=== PATIENT | female | born 1990 | race Caucasian/White ===

== ENCOUNTER 2025-04-08 03:52 | Emergency (ER) | payer OTHER, SELFPAY ==
--- NOTE | ~2025-04-08 | CT_ITS ---
Noncontrast CT scan of the left hip CLINICAL HISTORY: Injury TECHNIQUE: Axial noncontrast imaging of the left hip was performed. Sagittal and coronal reformatted images were constructed. Dose reduction technique was used on this scan by utilizing automated exposu re control and iterative reconstruction technique. The dose-length product (DLP) was 336.34 mGy-cm. Findings: No fracture or dislocation seen. Left hip joint and left SI joint are unremarkable. No dege nerative change or joint effusion seen. Visualized musculature about the left hip is unremarkable. There is a 3.1 x 2.6 cm amorphous somewhat masslike lesion in the subcutaneous soft tissues at the anterior aspect of the left inguinal region (axial image 84), which could reflect hematoma. IMPRESSION: No fracture or dislocation. No osseous or articular abnormality. 3.1 x 2.6 cm suspected hematoma in the anterior subcutaneous soft tissues at the left inguinal region . Reviewed, dictated and finalized at location . IMPRESSION: No fracture or dislocation. No osseous or articular abnormality. 3.1 x 2.6 cm suspected hematoma in the anterior subcutaneous soft tissues at th e left inguinal region.
[2025-04-08 04:12] VITALS: BP 95/65; PULSE 67; RESP 14; TEMP 36.3; O2SAT 100
[2025-04-08 04:19] VITALS: BP 95/49; PULSE 72; RESP 17; TEMP 36.6; O2SAT 99
--- OUTSIDE RECORDS SUMMARY | 2025-04-08 05:16 | XMS_ITS | Referral Summary ---
Author Organization [facility] Virtual Care Address [address] [place] [phone] Phone Care Team Providers Care Railroad Dispatcher Name Role Phone Unknown, Notinfile Primary Care Provider Unavail able Encounters Date Type Department Care Team Description 04/05/2025 Documentation [facility] Social Work [address] [place] [phone] Merlene Thompson 04/04/2025 1:23 PM CDT - 04/04/2025 3:58 PM CDT Emergency [address] [address] Fall, initial encounter (Primary Dx); Contusion of left foot, initial encounter; Abscess Discharge Disposition: Discharge to home or self care from Last 3 Months Allergies No known active allergies Medications acetaminophen (TYLENOL) 500 mg tablet Take 1 tablet (500 mg total) by mouth every 6 (six) hours as needed for pain 30 tablet 04/04/2025 Active cephalexin (KEFLEX) 500 mg capsule Take 1 capsule (500 mg total) by mouth 4 (four) times a day for 10 days 40 capsule 04/04/2025 Active naproxen (NAPROSYN) 500 mg tablet Take 1 tablet (500 mg total) by mouth 2 (two) times a day with meals 30 tablet 04/04/2025 Active Social History Tobacco Use Types Packs/Day Years Used Date Smoking Tobacco: Never Assessed Personal Safety Answer Date Recorded Have you ever been in or are you currently in a harmful physical or emotional relationship or is someone making you feel afraid or unsafe? Denies 04/04/2025 Comments Unknown Sex and Gender Information Value Date Recorded Sex Assigned at Not on file Legal Sex Female 7:07 PM CDT Gender Identity Not on file Sexual Orientation Not on file Last Filed Vital Signs Vital Sign Reading Time Taken Comments Blood Pressure 104/85 04/04/2025 3:56 PM CDT Pulse 68 04/04/2025 3:56 PM CDT Temperature 37.2 C (99 F) 04/04/2025 12:49 PM CDT Respiratory Rate 18 04/04/2025 3:56 PM CDT Oxygen Saturation 100% 04/04/2025 3:56 PM CDT Inhaled Oxygen Concentration - - Weight - - Height - - Body Mass Index - - Plan of Treatment Not on file Procedures Procedure Name Priority Date/Time Associated Diagnosis Comments XR FOOT LEFT 3 OR MORE VIEWS ED 04/04/2025 1:24 PM CDT from Last 3 Months Results * XR Foot Left 3 or More Views (04/04/2025 1:24 PM CDT) Anatomical Region Laterality Modality Lower Extremities, Foot Left Computed Radiography 04/04/2025 1:28 PM CDT Narrative 04/04/2025 1:31 PM CDT EXAM DESCRIPTION: XR FOOT LEFT 3 OR MORE VIEWS REASON FOR STUDY: pain Pt states she is staying at a motel and fell down last 3 stairs. C/o pain, redness, and swelling to left 2nd digit with difficulty moving it. Also c/o left groin pain radiating to left thigh. TECHNIQUE: 3 radiographic view(s) of the left foot . COMPARISON: None available. FINDINGS: BONES/JOINTS: Postsurgical changes of internal fixation are seen at the talus and distal tibia. No acute fracture or dislocation. Mild osteoarthritic changes of the dorsal talonavicular joint, and talocalcaneal joints. SOFT TISSUES: Within normal limits. IMPRESSION: No acute osseous abnormality. THIS IS AN ELECTRONICALLY VERIFIED FINAL REPORT 04/04/2025 1:31 PM - Electronically signed by Dorian Juarez M.D. T: Report ID: [id number] Reading Location: [id number] Procedure Note Dorian Juarez, - 04/04/2025 EXAM DESCRIPTION: XR FOOT LEFT 3 OR MORE VIEWS REASON FOR STUDY: pain Pt states she is staying at a motel and fell down last 3 stairs. C/o pain, redness, and swelling to left 2nd digit with difficulty moving it. Alsoc/o left groin pain radiating to left thigh. TECHNIQUE: 3 radiographic view(s) of the left foot . COMPARISON: None available. FINDINGS: BONES/JOINTS: Postsurgical changes of internal fixation are seenat the talus and distal tibia. No acute fracture or dislocation. Mild osteoarthritic changes of the dorsal talonavicular joint, andtalocalcaneal joints. SOFT TISSUES: Within normal limits. IMPRESSION: No acute osseous abnormality. THIS IS AN ELECTRONICALLY VERIFIED FINAL REPORT 04/04/2025 1:31 PM - Electronically signed by Dorian Juraez M.D. T: Report ID: [id number] Reading Location: [place] [id number] Oanh [facility] IMG XR PROCEDURES Final Resul t from Last 3 Months Insurance [facility] Care Teams Railroad Dispatcher Relationship Specialty Start Date End Date Unknown, Notinfile PCP - General 04/04/25
--- OUTSIDE RECORDS SUMMARY | 2025-04-08 05:17 | XMS_ITS | Clinical Summary ---
Author Organization [facility] Virtual Care Address [address] [place] [phone] Phone Care Team Providers Care It Web Development Consultant Name Role Phone Unknown, Notinfile Primary Care Provider Unavail able Allergies No known active allergies Medications acetaminophen [...] day with meals 30 tablet 04/04/2025 Active Encounters Date Type Department Care Team Description 04/05/2025 Documentation [facility] Social Work [address] [place] [phone] Merlene Thompson 04/04/2025 1:23 PM CDT - 04/04/2025 3:58 PM CDT Emergency [address] [address] Fall, initial encounter (Primary Dx); Contusion of left foot, initial encounter; Abscess Discharge Disposition: Discharge to home or self care from Last 3 Months Social History Tobacco Use Types Packs/Day Years [...] Mass Index - - Plan of Treatment Health Maintenance Due Date Last Done Comments Cervical Cancer Screening 1988 Depression Screening 1988 Hepatitis C Screening 1988 DTaP/Tdap/Td Vaccine (1 - Tdap) 1999 Varicella Vaccines (1 of 2 - 13+ 2-dose series) 2001 Hepatitis B Screening 2006 Regular Well Visit/Exam 18-64 2006 Influenza Vaccine (#1) 2025 HPV Vaccines Aged Out No longer eligi ble based on patient's age to complete this topic Pneumococcal vaccine <65 Aged Out No longer eligible based on patient's age to complete this topic Procedures Procedure Name Priority Date/Time Associated Diagnosis [...] by Dorian Juarez M.D. T: Report ID: [id number] Reading Location: [id number] Procedure Note Dorian Juarezory, DO - 04/04/2025 EXAM DESCRIPTION: XR FOOT LEFT [...] by Dorian Juarez M.D. T: Report ID: [id number] Reading Location: [id number] Oanh [facility]STA IMG XR PROCEDURES Final Resul t from Last 3 Months Insurance [facility] Care Teams It Web Development Consultant Relationship Specialty Start Date End Date Unknown, Notinfile PCP - General 04/04/25
--- OUTSIDE RECORDS SUMMARY | 2025-04-08 05:17 | XMS_ITS | Patient Health Record ---
Author Organization [facility] Address [address] [place] [address] Care Team Providers Care Dry Color Mixer Name Role Phone Sherry Wahl Primary Care Provider Reason For Referral No Information Medications Medication SIG (Take, Route, Frequency, Duration) Notes Start Date End Date Status BuSpar Active Latuda 40 MG 1 tablet with food O rally Once a day; Duration: 30 day(s) 01/13/2016 Active Fluoxetine Active Plan Of Treatment No Information Insurance Providers Payer Name Payer Address Payer Phone Subscriber Number Group Number Insured Name Patient Relationship to Insured Coverage Start Date Coverage End Date MEDICAID [address] [place] [phone] [id number] Clari Cooper Self - patient is the insured Medical (General) History Medical History History ICD Code Chemical Dependency Bipolar Disorder Personality Disorder Anemia Surgical History Surgery Date(Month/Year) ankle fractures
--- NOTE | 2025-04-08 05:44 | ED.LOWEXIN ---
HPI - Extremity Injury (Lower) General Chief Complaint: Extremity Injury, Lower Stated Complaint: groin pain Time Seen by Provider: 04/08/25 04:51 History of Present Illness HPI Narrative: 35-year-old female without any chronic medical conditions and does not take any chronic medications. She presents to the emergency department for concerns of left thigh and groin pain. She knows that she had started developing some bruising and swelling this area after falling down 3 steps while tripping on carpet. This occurred several days ago. She went to another hospital where she was evaluated and did not receive any kind of imaging and was told that this could just be an abscess and was given antibiotics and discharged. Patient did not fill this prescription and wants 2nd opinion. She does have some bruising and swelling to the inner left thigh that she states she struck during the fall. She is ambulatory and has not taken any pain medications or any medications at all prior to arrival. No fever, chills, abdominal pain, back pain, nausea, vomiting. Was otherwise in her normal state of health. Ambulatory in triage. Related Data Allergies Allergy/AdvReac Type Severity Reaction Status Date / Time No Known Allergies Allergy Verified 04/08/25 04:17 Review of Systems Review of Systems: As reviewed above in HPI Exam Narrative: GENERAL: [Well-appearing, well-nourished, and in no acute distress.] HEAD: [Normocephalic, atraumatic.] EYES: [PERRLA and EOMI.] ENT: Nares clear, no rhinorrhea or epistaxis. Mucous membranes moist. NECK: Supple. CHEST: [Clear to auscultation. No respiratory distress.] HEART: [Regular rate and rhythm]. No murmur heard. [Normal peripheral pulses.] ABDOMEN: [Soft, nondistended], [nontender], [No rigidity or guarding] EXTREMITIES: Left inner thigh has an area of swelling and tenderness to palpation, minor overlying bruising, no fluctuant masses or overlying cellulitis or skin changes concerning for infection. Full range of motion of the bilateral lower extremities and ambulatory. Distal pulses intact. Femoral pulses intact. SKIN: Warm, dry, no rash. NEURO: [No focal deficits]. Alert and oriented [x3.] PSYCH: [Normal mood and affect.] Course Vital Signs Vital signs: Vital Signs Temperature 36.3 C L 04/08/25 04:12 Pulse Rate 67 07/17/25 04:12 Respiratory Rate 14 04/08/25 04:12 Blood Pressure 95/65 L 04/08/25 04:12 Pulse Oximetry 100 04/08/25 04:12 Oxygen Delivery Room Air 04/08/25 04:12 Temperature 36.6 C 04/08/25 04:19 Pulse Rate 72 04/08/25 04:19 Respiratory Rate 17 04/08/25 04:19 Blood Pressure 95/49 L 04/08/25 04:19 Pulse Oximetry 99 04/08/25 04:19 Oxygen Delivery Room Air 04/08/25 04:19 MDM - Extremity Injury (Lower) MDM Narrative Medical decision making narrative: 35-year-old female without any chronic medical conditions and does not take any chronic medications. She presents to the emergency department for concerns of left thigh and groin pain. She knows that she had started developing some bruising and swelling this area after falling down 3 steps while tripping on carpet. This occurred several days ago. She went to another hospital where she was evaluated and did not receive any kind of imaging and was told that this could just be an abscess and was given antibiotics and discharged. Patient did not fill this prescription and wants 2nd opinion. She does have some bruising and swelling to the inner left thigh that she states she struck during the fall. She is ambulatory and has not taken any pain medications or any medications at all prior to arrival. No fever, chills, abdominal pain, back pain, nausea, vomiting. Was otherwise in her normal state of health. Ambulatory in triage. Left inner thigh has an area of swelling and tenderness to palpation, minor overlying bruising, no fluctuant masses or overlying cellulitis or skin changes concerning for infection. Full range of motion of the bilateral lower extremities and ambulatory. Distal pulses intact. Femoral pulses intact. Given patient's history of a fall several days ago and the resulting hematoma and bruising since then this is likely a traumatic hematoma, possibility of intramuscular bleeding or intramuscular hematoma, low suspicion infectious process as she is afebrile with no symptoms of infection on the exam. CT scans of the hip and femur were ordered for further evaluation delineation she is provided Toradol for analgesia. CT scan shows no fractures dislocations, no osseous or articular abnormalities. There is a 3 x 2.6 cm hematoma in the subcutaneous tissues in left inguinal region consistent with her exam findings and injury pattern. Patient had good pain relief with Toradol and we will syndrome with this. We discussed return precautions and follow-up instructions and she was amenable. Patient is safe and stable for discharge at this time. Medical Records Attestation: I reviewed the patient's medical records. Imaging Data Attestation: I personally reviewed and interpreted this imaging study as follows: My impression: Impressions Hip CT 04/08/25 06:05 IMPRESSION: No fracture or dislocation. No osseous or articular abnormality. 3.1 x 2.6 cm suspected hematoma in the anterior subcutaneous soft tissues at the left inguinal region. Discharge Plan Discharge Clinical Impression: Traumatic hematoma of left thigh Patient Disposition: Home Condition: Stable Instructions: Antibiotic Form, Contusion in Adults (ED), Hematoma (ED) Additional Instructions: Your CT scan shows a 3.1 cm x 2.6 cm hematoma in the soft tissue/muscular region in the left inguinal region consistent with your exam findings. No signs of active infection and would not recommend you take antibiotics for this. Will prescribe you high strength anti-inflammatory to control the pain and swelling for the next several days. Return with any new or worsening/emergent concerns at any time. With regular doctor. Patient Language: Albanian Prescriptions: New ketorolac 10 mg tablet 10 mg PO Q8H PRN (Reason: pain) 5 Days Qty: 20 0RF Rx Instructions: maximum total duration of 5 days from all oral, intranasal, or parenteral formulations Follow-up/Referrals: PHYSICIAN,PHARMACY SCHEDULER [Primary Care Provider] - Time of Disposition: 06:31
[2025-04-08] MEDS: KETOROLAC 10 MG TABLET PO (06:23)
[2025-04-08 06:53] VITALS: BP 105/79; PULSE 79; RESP 16; O2SAT 97
== END 2025-04-08 06:54 | disposition home or self-care (01) ==
PROVIDERS: Emergency Provider Student in an Organized Health Care Education/Training Program
DX: S70.12XA Contusion of left thigh, initial encounter (principal); W10.9XXA Fall (on) (from) unspecified stairs and steps, initial encounter
CPT/HCPCS: 73700; 99284; A9270

== ENCOUNTER 2025-04-11 15:08 | Emergency (ER) | payer OTHER, SELFPAY ==
--- NOTE | ~2025-04-11 | CT_ITS ---
CT OF left hip with contrast EXAMINATION: CT hip LT w con DATE: 04/11/2025 17:54 INDICATION: TECHNIQUE: Computed tomography (CT) of the left hip was performed with 100 mL Omnipaque 350 intraveno us contrast. Automated exposure control and iterative reconstruction technique were employed. The dos e-length product was 307.82 mGy-cm. COMPARISON: CT left hip without contrast 04/08/2025 FINDINGS: 2.9 x 3.3 x 3.2 cm heterogeneous fluid collection in the left groin with irregular wall thickening, w all enhancement, and possible internal septae. There is significant surrounding fat stranding. Multip le borderline enlarged adjacent lymph nodes. Strand-like connection to the adjacent femoral vein. Emp ty urinary bladder. Normal uterus. Normal left ovary with a corpus luteal cyst. Trace free pelvic flu id, within physiologic range. Normal regional bones. IMPRESSION: Possible 3.3 cm left inguinal abscess, with adjacent borderline lymphadenopathy. Pseudoaneurysm is no t excluded, recommend left groin ultrasound to evaluate for internal flow. Reviewed, dictated and finalized at location K. IMPRESSION: Possible 3.3 cm left inguinal abscess, with adjacent borderline lymphadenopathy . Pseudoaneurysm is not excluded, recommend left groin ultrasound to evaluate f or internal flow.
--- OUTSIDE RECORDS SUMMARY | 2025-04-11 15:11 | XMS_ITS | Patient Health Record ---
Author Organization [facility] Address [address] [place] [address] Care Team Providers Care Director Of Women'S Services Name Role Phone Sherry Wahl Primary Care Provider [phone] Reason For Referral No Information Medications Medication [...] Date MEDICAID [address] [place] [address] [id number] Clari Cooper Self - patient is the insured Medical (General) History Medical History History ICD Code Chemical Dependency Bipolar Disorder Personality Disorder Anemia Surgical History Surgery Date(Month/Year) ankle fractures
--- OUTSIDE RECORDS SUMMARY | 2025-04-11 15:11 | XMS_ITS | Clinical Summary ---
Author Organization [facility] Virtual Care Address [address] [place] [phone] Phone Care Team Providers Care Weed Eradicator Name Role Phone Unknown, Notinfile Primary Care [...] Type Department Care Team Description 04/05/2025 Documentation [facility] Social Work [address] [place] [phone] Merlene Thompson 04/04/2025 1:23 PM CDT - 04/04/2025 3:58 PM CDT Emergency [address] [address] Fall, initial encounter (Primary Dx); Contusion of [...] by Dorian Juarez M.D. T: Report ID: [id number] Reading Location: [id number] Procedure Note Dorian Juarezory, DO - 04/04/2025 [...] by Dorian Juarez M.D. T: Report ID: [id number] Reading Location: [id number] Oanh [facility] IMG XR PROCEDURES Final Resul t from Last 3 Months Insurance [facility] Care Teams Weed Eradicator Relationship Specialty Start Date End Date Unknown, Notinfile PCP - General 04/04/25
--- OUTSIDE RECORDS SUMMARY | 2025-04-11 15:11 | XMS_ITS | Referral Summary ---
Author Organization [facility] Virtual Care Address [address] [place] [phone] Phone Care Team Providers Care Iv Rn Name Role Phone Unknown, Notinfile Primary Care Provider Unavail able Encounters Date Type Department Care Team Description 04/05/2025 Documentation [facility] Social Work [address] [place] [phone] Merlene Thompson 04/04/2025 1:23 PM CDT - 04/04/2025 3:58 PM CDT Emergency [address] [address] Fall, initial encounter (Primary Dx); Contusion of [...] by Dorian Juarez M.D. T: Report ID: [id number] Reading Location: [id number] Procedure Note Dorian Juarez, - 04/04/2025 EXAM [...] by Dorian Juarez M.D. T: Report ID: [id number] Reading Location: [place] [id number] Oanh [facility] IMG XR PROCEDURES Final Resul t from Last 3 Months Insurance [facility] Care Teams Iv Rn Relationship Specialty Start Date End Date Unknown, Notinfile PCP - General 04/04/25
[2025-04-11 15:15] VITALS: BP 121/69; PULSE 89; RESP 16; TEMP 36.3; O2SAT 100
--- NOTE | 2025-04-11 15:35 | PC.NURSE ---
Pt states she was seen here [address] done and informed to come back if symptoms get worse. Pt states pain and swelling are now worse
--- OUTSIDE RECORDS SUMMARY | 2025-04-11 15:56 | XMS_ITS | Clinical Summary ---
Author Organization [facility] Virtual Care Address [address] [place] [phone] Phone Care Team Providers Care Research Aide Name Role Phone Unknown, Notinfile Primary Care [...] Care Team Description 04/05/2025 Documentation [facility] Social Work [address] [place] [phone] Merlene Thomposn 04/04/2025 1:23 PM CDT - 04/04/2025 3:58 PM CDT Emergency [address] [address] Fall, initial encounter (Primary Dx); Contusion of [...] by Dorian Juarez M.D. T: Report ID: [id number] Reading Location: [id number] Procedure Note Dorian Juarezory, DO - 04/04/2025 [...] by Dorian Juarez M.D. T: Report ID: [id number] Reading Location: [id number] Oanh [facility]STA IMG XR PROCEDURES Final Resul t from Last 3 Months Insurance [facility] Care Teams Research Aide Relationship Specialty Start Date End Date Unknown, Notinfile PCP - General 04/04/25
--- OUTSIDE RECORDS SUMMARY | 2025-04-11 15:56 | XMS_ITS | Referral Summary ---
Author Organization [facility] Virtual Care Address [address] [place] [phone] Phone Care Team Providers Care Retail Shift Leader Name Role Phone Unknown, Notinfile Primary Care Provider Unavail able Encounters Date Type Department Care Team Description 04/05/2025 Documentation [facility] Social Work [address] [place] [phone] Merlene Thompson 04/04/2025 1:23 PM CDT - 04/04/2025 3:58 PM CDT Emergency [address] [address] Fall, initial encounter (Primary Dx); Contusion of [...] by Dorian Juarez M.D. T: Report ID: [id number] Reading Location: [id number] Procedure Note Dorian Juarez, - 04/04/2025 EXAM [...] by Dorian Juarez M.D. T: Report ID: [id number] Reading Location: [place] [address] Oanh A[facility]STA IMG XR PROCEDURES Final Resul t from Last 3 Months Insurance [facility] Care Teams Retail Shift Leader Relationship Specialty Start Date End Date Unknown, Notinfile PCP - General 04/04/25
--- NOTE | 2025-04-11 16:29 | ED.GENADULT ---
HPI - General Adult General Chief complaint: Extremity Injury, Lower Stated complaint: hematoma in left groin Time Seen by Provider: 04/11/25 15:30 History of Present Illness HPI narrative: 35-year-old female presents to the emergency department for evaluation for worsening left groin pain. Patient states she initially stubbed her toe approximately 1 week ago in the began developing some left groin pain. Patient was evaluated on 04/08 and found to have a hematoma. Patient was discharged home with medications for pain control but states the hematoma and pain has worsened. Patient denies any additional falls or injuries but states that she does have worsening swelling at the left groin. Related Data Allergies Allergy/AdvReac Type Severity Reaction Status Date / Time No Known Allergies Allergy Verified 04/08/25 04:17 Review of Systems Review of Systems: All systems reviewed & are unremarkable except as noted in HPI and below Exam Narrative: APPEARANCE: Well appearing, no pain, no distress, well-nourished. HEAD: normocephalic, atraumatic. EYES: PERRLA/EOMI, conjunctivae clear. NOSE: Normal no drainage EARS:TMS clear with good light reflex. THROAT: Pharynx clear, no exudate. NECK: Supple. No adenopathy, no masses. RESPIRATORY: Airway patent, respirations nonlabored. Clear to auscultation bilaterally, no rales, rhonchi, wheezing. CARDIOVASCULAR: Regular rate and rhythm without murmurs rubs or gallops. ABDOMINAL: Soft, nontender, nondistended, normal bowel sounds MUSCULOSKELETAL: Moves all extremities. Strength/ROM intact, No edema, No calf tenderness. NEURO: Alert. Cranial nerves II through XII intact. Good gait. Good coordination SKIN: Erythema and tenderness at left groin Course Vital Signs Vital signs: Vital Signs Temperature 97.4 F L 04/11/25 15:15 Pulse Rate 89 04/11/25 15:15 Respiratory Rate 16 04/11/25 15:15 Blood Pressure 121/69 04/11/25 15:15 Pulse Oximetry 100 04/11/25 15:15 Oxygen Delivery Room Air 04/11/25 15:15 Temperature 97.4 F L 04/11/25 15:15 Pulse Rate 89 04/11/25 15:15 Respiratory Rate 16 04/11/25 15:15 Blood Pressure 121/69 04/11/25 15:15 Pulse Oximetry 100 04/11/25 15:15 Oxygen Delivery Room Air 04/11/25 15:15 Medical Decision Making MDM Narrative Medical decision making narrative: 35-year-old female presents emergency department for evaluation for swelling in the left groin. Patient is afebrile but does have a leukocytosis of 10.5. Patient's hemoglobin is 7.8 with no previous baseline. Patient's INR is 1.1. Patient has no acute abnormalities on her CMP urine preg was negative. CT scan showed possible abscess but additional ultrasound was recommended. Patient was adamant about having to leave the emergency department. Patient did sign out AMA. Patient was started on clindamycin prior to leaving AMA. Patient was encouraged to return to the emergency department. Vital Signs Vital Signs: Vital Signs Temperature 97.4 F L 04/11/25 15:15 Pulse Rate 89 04/11/25 15:15 Respiratory Rate 16 04/11/25 15:15 Blood Pressure 121/69 04/11/25 15:15 Pulse Oximetry 100 04/11/25 15:15 Oxygen Delivery Room Air 04/11/25 15:15 Temperature 97.4 F L 04/11/25 15:15 Pulse Rate 89 04/11/25 15:15 Respiratory Rate 16 04/11/25 15:15 Blood Pressure 121/69 04/11/25 15:15 Pulse Oximetry 100 04/11/25 15:15 Oxygen Delivery Room Air 04/11/25 15:15 Lab Data 04/11/25 16:51 04/11/25 16:51 Labs: Lab Results 04/11/25 04/11/25 Range/Units 16:51 17:31 WBC 10.5 H (4.5-10.0) K/mm3 RBC 3.65 L (4.2-5.4) M/mm3 Hgb 7.8 L (12.0-15.0) g/dL Hct 26.2 L (37.0-47.0) % MCV 71.8 L (80-100) fl MCH 21.4 L (26-34) pg MCHC 29.8 L (32-36) g/dl RDW 17.3 H (11.5-14.5) % Plt Count 241 (150-375) k/mm3 MPV 9.6 (7.4-10.4) fl Immature Gran % (Auto) 0.4 (0-0.5) % Neut % (Auto) 70.3 (45.5-73.1) % Lymph % (Auto) 18.3 (18.3-44.2) % [place] % (Auto) 9.7 H (2.6-8.5) % Eos % (Auto) 0.9 (0-4.4) % Baso % (Auto) 0.4 (0.2-1.2) % Lymph # (Auto) 1.92 (0.9-3.2) K/mm3 [place] # (Auto) 1.0 H (0.1-0.6) K/mm3 Eos # (Auto) 0.1 (0-0.3) K/mm3 Baso # (Auto) 0.0 (0.0-0.1) K/mm3 Abs Immat Gran (auto) 0.04 H (0.00-0.031) K/mm3 Absolute Neuts (auto) 7.4 H (1.3-6.7) K/mm3 Absolute Nucleated RBC 0.000 (0.0-0.012) K/mm3 Nucleated RBC % 0.0 (0.0-0.2) % PT 14.3 (11.1-14.7) Seconds INR 1.1 APTT 38.1 H (22.3-36.8) Seconds Sodium 137 (137-145) mmol/L Potassium 3.6 (3.4-5.0) mmol/L Chloride 106 (98-107) mmol/L Carbon Dioxide 23 (22-30) mmol/L Anion Gap 8 (4-12) mmol/L BUN 15 (7-17) mg/dL Creatinine 0.57 L (0.7-1.0) mg/dL Estim Creat Clear Calc 99 ml/min Estimated GFR > 60 (59 - ) Glucose 98 (65-110) mg/dL Calcium 8.9 (8.4-10.2) mg/dL Total Bilirubin 0.4 (0.2-1.3) mg/dL AST 18 (14-36) U/L ALT 11 (6-35) U/L Alkaline Phosphatase 67 (38-126) U/L Total Protein 7.2 (6.3-8.2) g/dL Albumin 3.7 (3.5-5.1) g/dL POC Urine HCG, Qual Negative (Negative) Discharge Plan Discharge Clinical Impression: Abscess, Groin pain Patient Disposition: Left Against Medical Advice Condition: Stable Additional Instructions: You left against medical advice. Antibiotic as directed for possible abscess. You need to return to the emergency department for further evaluation including an ultrasound. Patient Language: Polish Prescriptions: New clindamycin HCl [Cleocin HCl] 300 mg capsule 300 mg PO Q6H 7 Days Qty: 28 0RF No Action ketorolac 10 mg tablet 10 mg PO Q8H PRN (Reason: pain) 5 Days Qty: 20 0RF Rx Instructions: maximum total duration of 5 days from all oral, intranasal, or parenteral formulations Follow-up/Referrals: PHYSICIAN,CHILD PSYCHOLOGY TEACHER [Primary Care Provider] -
[2025-04-11 16:58] LABS: Hematocrit 26.2 % (37.0-47.0); Hemoglobin 7.8 g/dL (12.0-15.0); Immature Granulocyte Percent A 0.4 % (0-0.5); Lymphocytes Absolute Auto 1.92 K/mm3 (0.9-3.2); Mean Corpuscular HGB Conc 29.8 g/dl (32-36); Mean Corpuscular Hemoglobin 21.4 pg (26-34); Mean Corpuscular Volume 71.8 fl (80-100); Nucleated Red Blood Cells Absolute Auto 0.000 K/mm3 (0.0-0.012); Nucleated Red Blood Cells Perc 0.0 % (0.0-0.2); Platelet Count Result 241 k/mm3 (150-375); Red Blood Count 3.65 M/mm3 (4.2-5.4); White Blood Count 10.5 K/mm3 (4.5-10.0)
[2025-04-11 17:08] LABS: INR 1.1; Prothrombin Time 14.3 Seconds (11.1-14.7)
[2025-04-11 17:09] LABS: Alanine Aminotransferase 11 U/L (6-35); Albumin Level 3.7 g/dL (3.5-5.1); Alkaline Phosphatase 67 U/L (38-126); Anion Gap 8 mmol/L (4-12); Aspartate Amino Transferase 18 U/L (14-36); Bilirubin,Total 0.4 mg/dL (0.2-1.3); Blood Urea Nitrogen 15 mg/dL (7-17); Calcium 8.9 mg/dL (8.4-10.2); Carbon Dioxide 23 mmol/L (22-30); Chloride 106 mmol/L (98-107); Estimated CRCL calculation 99 ml/min; Estimated Glomerular Filt Rate > 60; Glucose 98 mg/dL (65-110); Partial Thromboplastin Time 38.1 Seconds (22.3-36.8); Potassium 3.6 mmol/L (3.4-5.0); Sodium 137 mmol/L (137-145); Total Protein 7.2 g/dL (6.3-8.2)
[2025-04-11 17:34] LABS: BEDSIDEPREGUCG Negative (Negative)
--- NOTE | 2025-04-11 18:25 | PC.NURSE ---
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 Pt states that she wants to sign out AMA. Pt states she would be willing to wait for her CT scan results but no longer than that. Dr Malone notified.
[2025-04-11] MEDS: CLINDAMYCIN HCL 150 MG CAP 300 MG PO (19:05)
== END 2025-04-11 19:12 | disposition left against medical advice (07) ==
PROVIDERS: Emergency Provider Emergency Medicine
DX: L02.214 Cutaneous abscess of groin (principal)
CPT/HCPCS: 36415; 73701; 80053; 81025; 85025; 85610; 85730; 99284; Q9967

== ENCOUNTER 2025-04-12 10:15 | Emergency (ER) | payer OTHER, SELFPAY ==
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
--- NOTE | ~2025-04-12 | US_ITS ---
US soft tissue groin LT 04/12/2025 14:30 Indication: Abnormal fluid left groin Procedure: High-resolution ultrasound of the left groin including color flow analysis Comparison: CT dated 04/11/2025 Findings: There is a complex fluid collection in the left groin measuring 4.5 x 3.4 x 2.9 cm with sig nificant internal vascularity and thickened irregular shaped internal septations. Cannot exclude comm unication to femoral vascularity based on this study. There is no obvious bowel loops are peristalsis . The overlying skin appears intact. Adjacent soft tissues demonstrate some mild hyperemia consistent with surrounding inflammation. Impression: 1: Complex irregular vascular fluid collection. Differential diagnosis includes infected abscess or l ymphocele, necrotic lymphadenitis, femoral or inguinal pseudoaneurysm/hematoma with organization and soft tissue tumors with cystic change or necrosis. Consider CTA of the abdomen and lower extremity ar teries. Aspiration should also be considered. Reviewed, dictated and finalized at location A. Impression: 1: Complex irregular vascular fluid collection. Differential diagnosis includes infected abscess or lymphocele, necrotic lymphadenitis, femoral or inguinal ps eudoaneurysm/hematoma with organization and soft tissue tumors with cystic [place] ge or necrosis. Consider CTA of the abdomen and lower extremity arteries. Aspir ation should also be considered.
--- OUTSIDE RECORDS SUMMARY | 2025-04-12 10:27 | XMS_ITS | Clinical Summary ---
Author Organization [facility] Virtual Care Address [address] [place] [phone] Phone Care Team Providers Care Scarf Gluer Name Role Phone Unknown, Notinfile Primary Care [...] Care Team Description 04/05/2025 Documentation [facility] Social Work [address] [place] [phone] Merlene Thompson 04/04/2025 1:23 PM CDT - 04/04/2025 3:58 PM CDT Emergency [address] [address] Fall, initial encounter (Primary Dx); Contusion of [...] by Dorian Juarez M.D. T: Report ID: [id number] Reading Location: [id number] Procedure Note Dorian Juarezory, DO - 04/04/2025 [...] by Dorian Juarez M.D. T: Report ID: [id number] Reading Location: [id number] [facility]G XR PROCEDURES Final Resul t from Last 3 Months Insurance [facility] Care Teams Scarf Gluer Relationship Specialty Start Date End Date Unknown, Notinfile PCP - General 04/04/25
--- OUTSIDE RECORDS SUMMARY | 2025-04-12 10:27 | XMS_ITS | Referral Summary ---
Author Organization [facility] Virtual Care Address [address] [place] [phone] Phone Care Team Providers Care Asbestos Shingle Roofer Name Role Phone Unknown, Notinfile Primary Care Provider Unavail able Encounters Date Type Department Care Team Description 04/05/[address] [facility] Social Work [address] [place] [phone] Merlene Thompson 04/04/2025 1:23 PM CDT - 04/04/2025 3:58 PM CDT Emergency [address] [address] Fall, initial encounter (Primary Dx); Contusion of [...] by Dorian Juarez M.D. T: Report ID: [id number] Reading Location: [id number] Procedure Note Dorian Juarez, - 04/04/2025 EXAM [...] by Dorian Juarez M.D. T: Report ID: [id number] Reading Location: [place] [address] O[facility]G XR PROCEDURES Final Resul t from Last 3 Months Insurance [facility] Care Teams Asbestos Shingle Roofer Relationship Specialty Start Date End Date Unknown, Notinfile PCP - General 04/04/25
--- OUTSIDE RECORDS SUMMARY | 2025-04-12 10:27 | XMS_ITS | Patient Health Record ---
Author Organization [facility] Address [address] [place] [address] Care Team Providers Care Chess Instructor Name Role Phone Sherry Wahl Primary Care Provider [phone] Reason For Referral No Information Medications Medication [...] Date MEDICAID [address] [place] [phone] [id number] Clari Cooper Self - patient is the insured Medical (General) History Medical History History ICD Code Chemical Dependency Bipolar Disorder Personality Disorder Anemia Surgical History Surgery Date(Month/Year) ankle fractures
[2025-04-12 11:32] VITALS: BP 109/76; PULSE 92; RESP 18; TEMP 36.6; O2SAT 100
--- OUTSIDE RECORDS SUMMARY | 2025-04-12 12:08 | XMS_ITS | Clinical Summary ---
Author Organization [facility] Virtual Care Address [address] [place] [phone] Phone Care Team Providers Care Hydrogen Plant Operator Name Role Phone Unknown, Notinfile Primary Care [...] Care Team Description 04/05/2025 Documentation [facility] Social Work [address] [place] [phone] Merlene Thompson 04/04/2025 1:23 PM CDT - 04/04/2025 3:58 PM CDT Emergency [address] [address] Fall, initial encounter (Primary Dx); Contusion of [...] by Dorian Juarez M.D. T: Report ID: [id number] Reading Location: [id number] Procedure Note Dorian Juarezory, DO - 04/04/2025 [...] by Dorian Juarez M.D. T: Report ID: [id number] Reading Location: [id number] O[facility]G XR PROCEDURES Final Resul t from Last 3 Months Insurance [facility] Care Teams Hydrogen Plant Operator Relationship Specialty Start Date End Date Unknown, Notinfile PCP - General 04/04/25
--- OUTSIDE RECORDS SUMMARY | 2025-04-12 12:08 | XMS_ITS | Referral Summary ---
Author Organization [facility] Virtual Care Address [address] [place] [phone] Phone Care Team Providers Care Social Sciences Department Chair Name Role Phone Unknown, Notinfile Primary Care Provider Unavail able Encounters Date Type Department Care Team Description 04/05/2025 Documentation [facility] Social Work [address] [place] [phone] Merlene Thompson 04/04/2025 1:23 PM CDT - 04/04/2025 3:58 PM CDT Emergency [address] [address] Fall, initial encounter (Primary Dx); Contusion of [...] by Dorian Juarez M.D. T: Report ID: [id number] Reading Location: [id number] Procedure Note Dorian Juarez, - 04/04/2025 EXAM [...] by Dorian Juarez M.D. T: Report ID: [id number] Reading Location: [place] [address] Oan[facility]G XR PROCEDURES Final Resul t from Last 3 Months Insurance [facility] Care Teams Social Sciences Department Chair Relationship Specialty Start Date End Date Unknown, Notinfile PCP - General 04/04/25
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
--- NOTE | 2025-04-12 14:03 | PC.NURSE ---
Pt to u/s via w/c at this time.
[2025-04-12] MEDS: ONDANSETRON HCL ODT 4 MG TABLET PO (14:32)
[2025-04-12] MEDS: HYDROcodone/acetaminophen (*CRX) 5-325 MG TABLET 1 TAB PO (14:33)
[2025-04-12 14:56] LABS: Add Urine Microscopic? YES; Appearance Urine Cloudy (Clear); Glucose Urine UA Negative (Negative); Leukocyte Esterase Ur Negative LEU/UL (Negative); Nitrate Urine Negative (Negative); Non Pathogenic Casts 0-2; Specific Grav Ur 1.020 (1.001-1.035)
[2025-04-12 15:00] VITALS: BP 114/71; PULSE 85; RESP 19; TEMP 37.2; O2SAT 100
[2025-04-12 17:09] LABS: Hematocrit 28.2 % (37.0-47.0); Hemoglobin 8.1 g/dL (12.0-15.0); Immature Granulocyte Percent A 0.3 % (0-0.5); Lymphocytes Absolute Auto 2.07 K/mm3 (0.9-3.2); Mean Corpuscular HGB Conc 28.7 g/dl (32-36); Mean Corpuscular Hemoglobin 20.6 pg (26-34); Mean Corpuscular Volume 71.8 fl (80-100); Nucleated Red Blood Cells Absolute Auto 0.000 K/mm3 (0.0-0.012); Nucleated Red Blood Cells Perc 0.0 % (0.0-0.2); Platelet Count Result 252 k/mm3 (150-375); Red Blood Count 3.93 M/mm3 (4.2-5.4); White Blood Count 10.5 K/mm3 (4.5-10.0)
[2025-04-12 17:31] LABS: Anion Gap 8 mmol/L (4-12); Blood Urea Nitrogen 13 mg/dL (7-17); Calcium 9.4 mg/dL (8.4-10.2); Carbon Dioxide 24 mmol/L (22-30); Chloride 109 mmol/L (98-107); Estimated CRCL calculation 82 ml/min; Estimated Glomerular Filt Rate > 60; Glucose 104 mg/dL (65-110); Potassium 3.9 mmol/L (3.4-5.0); Sodium 141 mmol/L (137-145)
[2025-04-12 17:44] VITALS: BP 112/76; PULSE 87; RESP 18; O2SAT 99
[2025-04-12 17:46] LABS: Band Neutrophils Percent 0 % (0-6)
[2025-04-12 17:47] LABS: Microcytosis 1+ (NORMAL); Schistocytes None Seen
[2025-04-12 17:48] LABS: Anisocytosis 2+; Hypochromasia 1+
--- NOTE | 2025-04-12 18:08 | PC.NURSE ---
Pt verbally aggressive to chemical lab technician, US tech and this RN. Pt demanding to know what the fuck is going on Pt states she doesnt understand why she is getting a CT now. This RN and MD has explained this to patient multiple times. This RN again explaining the reason behind getting another CT. Pt states If this CT comes back that they dont know what it is than i want a better doctor and i want shipped to a better [facility] Nobody knows what the hell is going on Im going to get a agricultural systems specialist Its my fucking body. This RN explained that pt has the right to refuse any test or treatment. Pt states lets just get the mother fucking CT. Pt taken to CT at this time
--- NOTE | 2025-04-12 19:54 | PC.NURSE ---
Dr. Christopher in room with patient discussing results of CT scan. Pt beligerant and cussing at staff. Dr. Christopher discussing calling [facility] for vascular surgery. After Dr. Christopher left pt continues to cuss at this RN. This RN and friend attempting to calm patient. pt continues to cuss and scream. Pt then throws a cup of ice in this RNs direction, hitting the cabinet. This RN and friend leave the room.
[2025-04-12 20:18] VITALS: BP 112/71; PULSE 73; RESP 20; O2SAT 99
--- NOTE | 2025-04-12 20:18 | PC.NURSE ---
Pt seen walking out of department at this time
--- NOTE | 2025-04-12 20:26 | PC.NURSE ---
Pt seen walking back into room, smelling of smoke
[2025-04-12 21:17] VITALS: BP 116/63; PULSE 73; RESP 20; O2SAT 100
== END 2025-04-12 21:24 | disposition left against medical advice (07) ==
PROVIDERS: Emergency Provider Student in an Organized Health Care Education/Training Program
DX: S30.0XXA Contusion of lower back and pelvis, initial encounter (principal); Z59.01 Sheltered homelessness; W19.XXXA Unspecified fall, initial encounter
CPT/HCPCS: 36415; 75635; 76882; 80048; 81001; 85025; 87040; 87086; 99284; A9270; Q9967